=== PATIENT | male | born 1935 | race Caucasian/White ===

== ENCOUNTER 2016-11-23 08:00 | Day surgery (SDC) | payer OTHER, MEDICARE ==
[2016-11-22 14:45] VITALS: BMI 31.5
[~2016-11-23 08:00] MED LIST: ACETAMINOPHEN 325 MG TABLET (FP) PO PRN; CIPROFLOXACIN HCL 0.3% OPHTH 2.5ML BOTTLE OP SCH; CYCLOPENTOLATE HCL 1% OPHTH SOLN 2 ML BOTTLE OP SCH; FLURBIPROFEN 0.03% OPHTH SOLN 2.5 ML BOTTLE OP SCH; PHENYLEPHRINE 2.5% OPHTH SOLN 15 ML BOTTLE OP SCH; TROPICAMIDE 1% OPHTH SOLN 15 ML BOTTLE OP SCH
[2016-11-23] MEDS: CIPROFLOXACIN 0.3% EYE DROPS 5 ML BOTTLE ONE ×3 (08:15→08:28)
[2016-11-23] MEDS: TROPICAMIDE 1% OPHTH SOLN 15 ML BOTTLE ONE ×3 (08:15→08:28)
[2016-11-23] MEDS: PHENYLEPHRINE 2.5% OPHTH SOLN 15 ML BOTTLE ONE ×3 (08:15→08:28)
[2016-11-23] MEDS: FLURBIPROFEN 0.03% OPHTH SOLN 2.5 ML BOTTLE ONE ×3 (08:15→08:28)
[2016-11-23] MEDS: CYCLOPENTOLATE HCL 1% OPHTH SOLN 2 ML BOTTLE ONE ×3 (08:15→08:28)
[2016-11-23 08:17] VITALS: TEMP 97.6
[2016-11-23] MEDS ORDERED: MIDAZOLAM HCL 2 MG/2 ML SINGLE DOSE VIAL ONE (08:40)
[2016-11-23] MEDS ORDERED: PROPOFOL 20 ML ONE (08:49)
[2016-11-23] MEDS ORDERED: PHENYLEPHRINE/KETOROLAC 4 ML VIAL IO ONE ×2 (09:00→09:18)
[2016-11-23] MEDS ORDERED: BUPIVACAINE HCL/PF 0.75% 10 ML VIAL NR ONE (09:10)
[2016-11-23] MEDS ORDERED: LIDOCAINE HCL/PF 2% SDV 5ML VIAL INF ONE (09:10)
[2016-11-23] MEDS ORDERED: POVIDONE-IODINE 5% OPHTHALMIC PREP 30 ML SOLUTION OD ONE (09:13)
[2016-11-23] MEDS ORDERED: CHONDROITIN SU A/HYALUR SOD 1 KIT IO ONE (09:18)
[2016-11-23] MEDS ORDERED: BSS (NA/CA/MG/K) BALANCED SALT SOLUTION OPHTH SOLN 15 ML BOTTLE OD ONE (09:18)
[2016-11-23] MEDS ORDERED: LIDOCAINE HCL 1% PRESERVATIVE FREE - 30ML VIAL IO ONE (09:18)
[2016-11-23 11:00] VITALS: BP 103/57; PULSE 52
--- NOTE | 2016-11-24 10:47 | SPEC ---
DATE OF OPERATION: 11/23/2016 PREOPERATIVE DIAGNOSIS: Cataract, right eye. POSTOPERATIVE DIAGNOSIS: Cataract, right eye. PROCEDURE: Phacoemulsification of right cataract with posterior chamber intraocular lens implantation. Lens used SN60WF, 23.5 Diopter power, serial number [id number]. ANESTHESIA: Peribulbar/Modified Van Lint/MAC. COMPLICATIONS: None. DESCRIPTION OF PROCEDURE: The patient was brought into the operating room and correctly identified along with the operative site as well as correct intraocular lens. He was then given a peribulbar block under sedation with 5 mL of a 1:1 mixture of 2% lidocaine and 0.75% bupivacaine, and 2 mL of the same mixture was given as a modified Van Lint. The eye was then prepped and draped in the usual sterile fashion including 5% Betadine solution in the conjunctival sac and an eyelid drape. An eyelid speculum was then placed into the right eye. A paracentesis was created. Intracameral lidocaine as well as BSS which had been spiked with Omidria was placed intracamerally. Viscoelastic was injected to inflate the anterior chamber. A temporal clear cornea wound was created. A continuous circular capsulorrhexis was performed. The nucleus was then hydrodissected with BSS and removed with phacoemulsification. The remaining cortical material was irrigated and aspirated from the eye. Viscoelastic was injected to inflate the capsular bag. The lens was injected into the capsular bag. The viscoelastic was then irrigated and aspirated from the eye. All wounds were checked and found to be watertight. No suture was placed, and the intraocular lens noted to be well centered and covered by the anterior capsule border. Topical vancomycin was given, the eye patched and shielded, and the patient discharged from the operating room in a stable condition. VINAY KENT M.D. [id number]
== END 2016-11-23 11:04 | disposition home or self-care (01) ==
LOC: JASU-SURG 08:00
PROVIDERS: ATTEND Ophthalmology
PROC: 08RJ3JZ Replacement of Right Lens with Synthetic Substitute, Percutaneous Approach (ICD-10-PCS; principal; 2016-11-23 09:00)
DX: H26.8 Other specified cataract (principal)
CPT/HCPCS: C9447

== ENCOUNTER 2016-12-14 08:36 | Day surgery (SDC) | payer OTHER, MEDICARE ==
[2016-12-13 10:38] VITALS: BMI 30.8
[~2016-12-14 08:36] MED LIST changes: +PHENYLEPHRINE/KETOROLAC 4 ML VIAL IO ONE
[2016-12-14] MEDS ORDERED: CYCLOPENTOLATE HCL 1% OPHTH SOLN 2 ML BOTTLE ONE (08:53)
[2016-12-14] MEDS ORDERED: TROPICAMIDE 1% OPHTH SOLN 15 ML BOTTLE ONE (08:53)
[2016-12-14] MEDS ORDERED: PHENYLEPHRINE 2.5% OPHTH SOLN 15 ML BOTTLE ONE (08:53)
[2016-12-14] MEDS ORDERED: FLURBIPROFEN 0.03% OPHTH SOLN 2.5 ML BOTTLE ONE (08:53)
[2016-12-14] MEDS ORDERED: CIPROFLOXACIN 0.3% EYE DROPS 5 ML BOTTLE ONE (08:53)
[2016-12-14] MEDS ORDERED: CYCLOPENTOLATE HCL 1% OPHTH SOLN 2 ML BOTTLE OS ONE ×2 (09:00→09:10)
[2016-12-14] MEDS ORDERED: FLURBIPROFEN 0.03% OPHTH SOLN 2.5 ML BOTTLE OS ONE ×2 (09:00→09:10)
[2016-12-14] MEDS ORDERED: TROPICAMIDE 1% OPHTH SOLN 15 ML BOTTLE OS ONE ×2 (09:00→09:10)
[2016-12-14] MEDS ORDERED: CIPROFLOXACIN HCL 0.3% OPHTH 2.5ML BOTTLE OS ONE ×2 (09:00→09:10)
[2016-12-14] MEDS ORDERED: PHENYLEPHRINE 2.5% OPHTH SOLN 15 ML BOTTLE OS ONE ×2 (09:00→09:10)
[2016-12-14 09:03] VITALS: TEMP 97.4
[2016-12-14] MEDS ORDERED: MIDAZOLAM HCL 2 MG/2 ML SINGLE DOSE VIAL ONE (10:06)
[2016-12-14] MEDS ORDERED: PROPOFOL 20 ML ONE (10:06)
[2016-12-14] MEDS ORDERED: BUPIVACAINE HCL/PF 0.75% 10 ML VIAL RB ONE (10:08)
[2016-12-14] MEDS ORDERED: LIDOCAINE HCL/PF 2% SDV 5ML VIAL PNB ONE ×2 (10:08→10:09)
[2016-12-14] MEDS ORDERED: BUPIVACAINE HCL/PF 0.75% 10 ML VIAL PNB ONE (10:09)
[2016-12-14] MEDS ORDERED: CHONDROITIN SU A/HYALUR SOD 1 KIT IO ONE (10:19)
[2016-12-14] MEDS ORDERED: LIDOCAINE HCL 1% PRESERVATIVE FREE - 30ML VIAL IO ONE (10:19)
[2016-12-14 13:01] VITALS: BP 110/64; PULSE 50
--- NOTE | 2016-12-15 08:51 | SPEC ---
DATE OF OPERATION: 12/14/2016 PREOPERATIVE DIAGNOSIS: Cataract left eye. POSTOPERATIVE DIAGNOSIS: Cataract left eye. ASSOCIATED DIAGNOSIS: Anxiety/claustrophobia. OPERATION: Phacoemulsification of left cataract with posterior chamber intraocular lens implantation, lens used SN60WF, 23.0 Diopter power, Serial No. [id number]. SURGEON: Pritesh Will M.D. ANESTHESIA: Peribulbar/Modified Van Lint/MAC. COMPLICATIONS: None. PROCEDURE: The patient was brought to the operating room and correctly identified along with the operative site and a correct intraocular lens lynn. The patient was then given a peribulbar block under sedation with 5 mL of a 1:1 mixture of 2% Lidocaine and 0.5% Bupivacaine. Two to 3 mL of the same mixture was given as a modified Van Lint block. The eye was then prepped and draped in the usual sterile fashion including 5% Betadine solution in the conjunctival sac and an eyelid drape. An eyelid speculum was then placed into the eye. A paracentesis port was created. Viscoelastic was injected to inflate the anterior chamber. A temporal clear corneal wound was created. A continuous circular capsulorrhexis was performed. The nucleus was then hydro-dissected and removed phacoemulsification via the [id number] approach. The remaining cortical material was irrigated and aspirated from the eye. Viscoelastic was injected to inflate the capsular bag. The lens was injected into the capsular bag. Viscoelastic was then irrigated and aspirated from the eye. The intraocular lens was noted to be well centered and covered by the anterior capsular border. All wounds were found to be watertight. Topical Vancomycin was given. The eye patch and shield were placed. The patient was discharged from the operating room in stable condition. Adam [id number]
== END 2016-12-14 11:40 | disposition home or self-care (01) ==
LOC: JASU-SURG 08:36
PROVIDERS: ATTEND Ophthalmology
PROC: 08RK3JZ Replacement of Left Lens with Synthetic Substitute, Percutaneous Approach (ICD-10-PCS; principal; 2016-12-14 10:00)
DX: H26.9 Unspecified cataract (principal)

== ENCOUNTER 2025-01-16 14:10 | Emergency (ER) | payer OTHER, MEDICARE ==
[2025-01-16 14:16] VITALS: BP 140/67; PULSE 64; RESP 19; TEMP 97.7; BMI 28.1
[2025-01-16] MEDS ORDERED: ACETAMINOPHEN 325 MG TABLET (FP) ONE (15:03)
[2025-01-16] MEDS ORDERED: LIDOCAINE 5% TOPICAL PATCH ONE (15:03)
[2025-01-16] MEDS: LIDOCAINE 5% TOPICAL PATCH TP ONE (15:08)
[2025-01-16] MEDS: ACETAMINOPHEN 500 MG TABLET (FP) PO ONE (15:08)
[2025-01-17] MEDS ORDERED: LIDOCAINE PATCH REMOVAL MC ONE (02:30)
== END 2025-01-16 16:00 | disposition home or self-care (01) ==
LOC: JER 14:10
DX: M54.2 Cervicalgia (principal); M54.6 Pain in thoracic spine; W01.198A Fall on same level from slipping, tripping and stumbling with subsequent striking against other object, initial encounter
CPT/HCPCS: 70450-TC; 72125-TC; 99284-25